=== PATIENT | male | born 1960 | race Caucasian/White ===

== ENCOUNTER 2023-03-16 20:29 | Emergency (ER) | payer BC ==
[2023-03-16 20:36] VITALS: BP 136/81; PULSE 60; RESP 16; TEMP 98.5; BMI 29.1
== END 2023-03-16 22:10 | disposition left against medical advice (07) ==
LOC: FER 20:29
DX: H57.89 Other specified disorders of eye and adnexa (principal); R51.9 Headache, unspecified; G45.9 Transient cerebral ischemic attack, unspecified
CPT/HCPCS: 70450-TC; 99284-25